=== PATIENT | male | born 1950 | race Caucasian/White ===

== ENCOUNTER 2017-04-07 16:07 | Emergency (ER) | payer MEDICARE, OTHER ==
[2017-04-07 16:59] LABS: CALCIUM 8.9 mg/dL (8.5-10.3); CREATININE 0.7 mg/dL (0.6-1.2); POTASSIUM 4.4 mmol/L (3.5-5.0)
[2017-04-07 17:08] LABS: BASOPHILS # (AUTO) 0.1 10^3/uL (0.0-0.1); BASOPHILS % (AUTO) 1.2 %; EOSINOPHILS # (AUTO) 0.8 10^3/uL (0.0-0.7); EOSINOPHILS % (AUTO) 7.5 %; HCT - HEMATOCRIT 47.7 % (42.0-52.0); HGB - HEMOGLOBIN 15.8 g/dL (14.0-18.0); LYMPHOCYTES # (AUTO) 4.2 10^3/uL (1.5-3.5); MEAN CORPUSCULAR HEMOGLOBIN 30.7 pg (27.0-31.0); MEAN CORPUSCULAR HGB CONC 33.1 g/dL (32.0-36.0); MEAN CORPUSCULAR VOLUME 92.7 fL (80.0-94.0); MEAN PLATELET VOLUME 8.1 fL (7.4-11.4); NEUTROPHILS # (AUTO) 4.1 10^3/uL (1.5-6.6); NEUTROPHILS % (AUTO) 40.3 %; NUCLEATED RED BLOOD CELLS AUTO 0.1 /100WBC; RED BLOOD COUNT 5.15 10^6/uL (4.70-6.10); RED CELL DISTRIBUTION WIDTH 13.3 % (12.0-15.0); UNCORRECTED WHITE BLOOD COUNT 10.3 x10^3/uL; WHITE BLOOD COUNT 10.3 x10^3/uL (4.8-10.8)
[2017-04-07] MEDS ORDERED: FLECAINIDE 50 MG TABLET PO ONE (17:46)
[2017-04-07] MEDS ORDERED: FLECAINIDE 50 MG TABLET PO SCH (18:00)
--- NOTE | 2017-04-07 20:19 | ED Physician Documentation ---
History of Present Illness - Stated complaint Stated Complaint: AFIB STATE - Chief complaint Chief Complaint: Cardiac - History obtained from History obtained from: Patient (Pt states that 2 days ago he noticed that he was in A-fib. 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 pt has no symptoms from the a fib.) Review of Systems Constitutional: denies: Fever, Chills, Myalgias Throat: denies: Sore throat Cardiac: reports: Palpitations. denies: Chest pain / pressure, Calf pain Respiratory: denies: Dyspnea, Cough, Wheezing GI: denies: Abdominal Pain, Nausea, Vomiting, Constipation, Diarrhea : denies: Dysuria, Frequency Skin: denies: Rash, Lesions Musculoskeletal: denies: Back pain Neurologic: denies: Generalized weakness, Headache PD PAST MEDICAL HISTORY - Present Medications Home Medications: Ambulatory Orders Medication Instructions Recorded Confirmed Aspirin Chewable [[place] 81 mg PO DAILY 04/07/17 04/07/17 Aspirin] Sotalol [Betapace] 1 tab PO TID 04/07/17 04/07/17 - Allergies Allergies/Adverse Reactions: Allergies Allergy/AdvReac Type Severity Reaction Status Date / Time Sulfa (Sulfonamide Allergy Unknown Verified 04/07/17 16:25 Antibiotics) PD ED PE NORMAL - Vitals Vital signs reviewed: Yes - General General: Alert and oriented X 3, No acute distress - HEENT HEENT: Atraumatic - Cardiac Cardiac: No murmur, No gallop. No: RRR (irregular ) - Respiratory Respiratory: No respiratory distress, Clear bilaterally - Abdomen Abdomen: Normal bowel sounds, Soft, Non tender - Derm Derm: Normal color, No rash - Neuro Neuro: Alert and oriented X 3 Eye Opening: Spontaneous Motor: Obeys Commands Verbal: Oriented GCS Score: 15 - Psych Psych: Normal mood, Normal affect Results - Vitals Vitals: Vital Signs - 24 hr 04/07/17 04/07/17 16:20 19:11 Temperature 97.6 C H 36.7 C Heart Rate 78 91 Respiratory 16 16 Rate Blood Pressure 123/75 O2 Saturation 96 97 Oxygen O2 Source Room air - EKG (time done) 1624 Rate: Rate (enter#) Rhythm: Atrial fibrillation [place]: Normal QRS: Normal Ischemia: Non specific changes 1921 Rate: Rate (enter#) Rhythm: Atrial fibrillation [place]: Normal Intervals: QRS normal QRS: Normal Ischemia: Non specific changes - Labs Labs: Laboratory Tests 04/07/17 04/07/17 04/07/17 16:35 16:35 16:35 WBC 10.3 RBC 5.15 Hgb 15.8 Hct 47.7 MCV 92.7 MCH 30.7 MCHC 33.1 RDW 13.3 Plt Count 269 MPV 8.1 Neut # 4.1 Lymph # 4.2 H [place] # 1.0 Eos # 0.8 H Baso # 0.1 Absolute Nucleated RBC 0.01 Nucleated RBC % 0.1 Sodium 139 Potassium 4.4 Chloride 103 Carbon Dioxide 30 Anion Gap 6.0 BUN 18 Creatinine 0.7 Estimated GFR (MDRD) 113 Glucose 101 H Calcium 8.9 Troponin I < 0.04 PD MEDICAL DECISION MAKING - ED course Complexity details: d/w patient ED course: pt in afib with a normal rate and normal BP. tried flecainide in the eR but did not convert. Pt has no symptoms of the afib, has normal BP. pt does spend some time in NSR on the monitor in the ER. we discussed his options and decided to send the pt home and will contact his elementary school professional on monday. we discussed his return precautions Departure - Departure Disposition: Home, Self Care Clinical Impression: Atrial fibrillation Condition: Good Instructions: Atrial Fibrillation Dc Follow-Up: elementary school professional, provider [Other] Comments: I cave you Flecainide here in the ER. call your elementary school professional on monday to discuss your options. Return to the ER for any new symptoms, chest pain, shortenss of breath or any other concerning symptoms.
[2017-04-07 20:38] VITALS: BP 131/68
== END 2017-04-07 20:45 | disposition home or self-care (01) ==
LOC: ED 16:07
DX: I48.91 Unspecified atrial fibrillation (principal); I49.3 Ventricular premature depolarization; Z79.82 Long term (current) use of aspirin
CPT/HCPCS: 36415; 80048; 84484; 85025; 93005; 99283; 99284; A9270

== ENCOUNTER 2020-07-11 13:19 | Outpatient (CLI) | payer MEDICARE | END 2020-07-11 13:20 | disposition critical access hospital (66) | LOC: EMS 13:19 | PROVIDERS: ATTEND Emergency Medicine | DX: S42.302A Unspecified fracture of shaft of humerus, left arm, initial encounter for closed fracture (principal); W10.8XXA Fall (on) (from) other stairs and steps, initial encounter; Y93.01 Activity, walking, marching and hiking; Y92.832 Beach as the place of occurrence of the external cause | CPT/HCPCS: A0425; A0427 ==

== ENCOUNTER 2020-07-11 13:56 | Emergency (ER) | payer BC, MEDICARE, OTHER ==
[2020-07-11 14:10] LABS: BASOPHILS # (AUTO) 0.1 10^3/uL (0.0-0.1); BASOPHILS % (AUTO) 0.4 %; EOSINOPHILS % (AUTO) 0.1 %; HCT - HEMATOCRIT 43.9 % (42.0-52.0); HGB - HEMOGLOBIN 14.3 g/dL (14.0-18.0); LYMPHOCYTES # (AUTO) 1.1 10^3/uL (1.5-3.5); LYMPHOCYTES % (AUTO) 7.8 %; MEAN CORPUSCULAR HEMOGLOBIN 30.1 pg (27.0-31.0); MEAN CORPUSCULAR HGB CONC 32.6 g/dL (32.0-36.0); MEAN CORPUSCULAR VOLUME 92.4 fL (80.0-94.0); MEAN PLATELET VOLUME 9.4 fL (7.4-11.4); MONOCYTES # (AUTO) 0.9 10^3/uL (0.0-1.0); MONOCYTES % (AUTO) 6.4 %; NEUTROPHILS # (AUTO) 11.9 10^3/uL (1.5-6.6); NEUTROPHILS % (AUTO) 84.9 %; PLT - PLATELET COUNT 236 10^3/uL (130-450); RED BLOOD COUNT 4.75 10^6/uL (4.70-6.10); RED CELL DISTRIBUTION WIDTH 13.2 % (12.0-15.0); WHITE BLOOD COUNT 14.1 x10^3/uL (4.8-10.8)
--- NOTE | 2020-07-11 14:13 | ED Physician Documentation ---
History of Present Illness - Stated complaint Stated Complaint: FALL - Chief complaint Chief Complaint: Trauma Ext - History obtained from History obtained from: Patient - History of Present Illness Timing: Today Pain level max: 7 Pain level now: 5 - Additonal information Additional information: Patient is a 69-year-old male who presents to the emergency department after falling today. [place] when he slipped and fell approximately 12 steps to the ground. He states that he mostly hit on his buttocks. He may have struck his head, he is unsure but does take Eliquis. His only complaint of pain is to the left shoulder. Worse with movement, better with splinting. No loss of consciousness. No vomiting. No seizure activity. No numbness or tingling. Review of Systems Ten Systems: 10 systems reviewed and negative Constitutional: denies: Fever, Chills Nose: denies: Rhinorrhea / runny nose, Congestion Throat: denies: Sore throat Respiratory: denies: Cough GI: denies: Nausea, Vomiting, Diarrhea Skin: denies: Rash Musculoskeletal: denies: Neck pain, Back pain Neurologic: denies: Focal weakness, Numbness, Seizure, Confused, Headache PD PAST MEDICAL HISTORY - Past Medical History Past Medical History: Yes Cardiovascular: Atrial fibrillation - Past Surgical History Past Surgical History: Yes Cardiovascular: Other (ablation) - Present Medications Home Medications: Ambulatory Orders Medication Instructions Recorded Confirmed Apixaban [Eliquis] 5 mg PO BID 07/11/20 07/11/20 Budesonide [Pulmicort] 1 puffs .ROUTE BID 07/11/20 07/11/20 Oxycodone HCl/Acetaminophen 1 - 2 each PO Q6H PRN #20 tab 07/11/20 [Percocet 5-325 mg Tablet] - Allergies Allergies/Adverse Reactions: Allergies Allergy/AdvReac Type Severity Reaction Status Date / Time Sulfa (Sulfonamide Allergy Unknown Verified 07/11/20 15:05 Antibiotics) - Living Situation Living Arrangement: reports: At home - Social History Does the pt have substance abuse?: No - Family History Family history: reports: Non contributory - Immunizations Immunizations are current?: Yes Immunizations: TDAP current <10years PD ED PE NORMAL - Vitals Vital signs reviewed: Yes - General General: Alert and oriented X 3, No acute distress - HEENT HEENT: Atraumatic, PERRL, Ears normal, Moist mucous membranes, Pharynx benign - Neck Neck: Supple, no meningeal sign, Other (c-collar in place. mild upper c-spine TTP. NVI) - Cardiac Cardiac: RRR - Respiratory Respiratory: No respiratory distress, Clear bilaterally - Abdomen Abdomen: Soft, Non tender, Non distended - Back Back: No spinal TTP - Derm Derm: Warm and dry - Extremities Extremities: No edema, No calf tenderness / cord, Other (Tenderness to palpation over the left glenohumeral joint. No gross deformity. Neurovascular intact. Otherwise normal examination of the 4 extremities. No lacerations or broken skin) - Neuro Neuro: Alert and oriented X 3, furniture sprayer 2-12 intact, No motor deficit, No sensory deficit, Normal speech Eye Opening: Spontaneous Motor: Obeys Commands Verbal: Oriented GCS Score: 15 - Psych Psych: Normal mood, Normal affect Results - Vitals Vitals: Vital Signs - 24 hr 07/11/20 07/11/20 07/11/20 13:59 14:33 14:35 Temperature 36.1 C L Heart Rate 81 78 76 Respiratory 16 16 16 Rate Blood Pressure 145/82 H 124/74 139/64 H O2 Saturation 98 96 97 07/11/20 07/11/20 15:05 15:30 Temperature Heart Rate 79 78 Respiratory 12 14 Rate Blood Pressure 138/71 H 134/69 H O2 Saturation 97 96 Oxygen O2 Source Room air - Labs Labs: Laboratory Tests 07/11/20 07/11/20 14:01 14:05 WBC 14.1 H RBC 4.75 Hgb 14.3 Hct 43.9 MCV 92.4 MCH 30.1 MCHC 32.6 RDW 13.2 Plt Count 236 MPV 9.4 Neut # (Auto) 11.9 H Lymph # (Auto) 1.1 L [place] # (Auto) 0.9 Eos # (Auto) 0.0 Baso # (Auto) 0.1 Absolute Nucleated RBC 0.00 Nucleated RBC % 0.0 Sodium 139 Potassium 4.2 Chloride 100 L Carbon Dioxide 28 Anion Gap 11.0 BUN 20 Creatinine 0.9 Estimated GFR (MDRD) 84 L Glucose 146 H Calcium 9.1 Total Bilirubin 1.7 H AST 19 ALT 22 Alkaline Phosphatase 87 Total Protein 7.2 Albumin 3.9 Globulin 3.3 Albumin/Globulin Ratio 1.2 - Rads (name of study) head CT Radiology: Prelim report reviewed, EMP read contemporaneously, See rad report (N o acute abnormality) cervical spine CT Radiology: Prelim report reviewed, EMP read contemporaneously, See rad report (No acute abnormality) L shoulder xray Radiology: Prelim report reviewed, EMP read contemporaneously, See rad report (Proximal humerus fracture) PD MEDICAL DECISION MAKING - ED course Complexity details: reviewed results, re-evaluated patient, considered differential, d/w patient ED course: 69-year-old male presents to the emergency department after a fall today down several stairs. No acute findings on head CT or cervical spine CT. Left shoulder x-ray has a proximal humerus fracture. Placed in a Harmon brace and sling. Pain well controlled. Neurovascularly intact including the axillary nerve. We will have him follow-up with orthopedics for further care. Discussed the case with Dr. Haque who will see the patient in clinic this week. Patient counseled regarding signs and symptoms for which I believe and urgent re-evaluation would be necessary. Patient with good understanding of and agreement to plan and is comfortable going home at this time This document was made in part using voice recognition software. While efforts are made to proofread this document, sound alike and grammatical errors may occ ur. Departure - Departure Disposition: 01 Home, Self Care Clinical Impression: Proximal humerus fracture Qualifiers: Encounter type: initial encounter Fracture type: closed Fracture morphology: unspecified fracture morphology Laterality: left Qualified Code(s): S42.202A - Unspecified fracture of upper end of left humerus, initial encounter for closed fracture Condition: Good Instructions: ED Fx Upper Ext Follow-Up: JENSEN CONTRERAS MD [Primary Care Provider] - [facility] [Provider Group] Prescriptions: Oxycodone HCl/Acetaminophen [Percocet 5-325 mg Tablet] 1 - 2 each PO Q6H PRN #20 tab PRN Reason: pain Comments: Wear the brace until released by orthopedics. Follow-up with orthopedics next week for further care. Return if you worsen. I spoke with Dr. Haque of orthopedics [facility]. Do not drink alcohol or drive while on narcotic pain medicine. Note that many narcotic pain relievers also contain tylenol/acetaminophen. Please ensure that your total dose of acetaminophen from all sources does not exceed 3 grams (3000mg) per day. You may constipated on this medication, take a stool softener such as "Colace" twice a day while you are on it. Also recommend a [id number] laxative such as senna or MiraLAX any day that you do not have a bowel movement. If you received narcotic pain medication in the emergency department, do not drive or operate machinery for the next 24 hours. Discharge Date/Time: 07/11/20 15:55
[2020-07-11 14:19] LABS: ALBUMIN 3.9 g/dL (3.2-5.5); ALBUMIN/GLOBULIN RATIO 1.2 (1.0-2.2); BILIRUBIN,TOTAL 1.7 mg/dL (0.2-1.0); CALCIUM 9.1 mg/dL (8.5-10.3); CREATININE 0.9 mg/dL (0.6-1.2); POTASSIUM 4.2 mmol/L (3.5-5.0); TOTAL PROTEIN 7.2 g/dL (6.7-8.2)
--- NOTE | 2020-07-11 14:27 | CT Report ---
PROCEDURE: HEAD WO INDICATIONS: fall, head injury, takes eliquis TECHNIQUE: Noncontrast 4.5 mm thick angled axial sections acquired from the foramen magnum to the vertex. For r adiation dose reduction, the following was used: automated exposure control, adjustment of mA and/or kV according to patient size. COMPARISON: None. FINDINGS: Image quality: Excellent. CSF spaces: Basal cisterns are patent. No extra-axial fluid collections. Ventricles are normal in size and shape. Brain: No midline shift. No intracranial masses or hemorrhage. Rosales-white matter interface is norm al. Skull and face: Calvarium and visualized facial bones are intact, without suspicious lesions. Sinuses: Mild bilateral maxillary sinus mucoperiosteal thickening. Moderate bilateral ethmoid sinus mucosal thickening. Visualized sinuses and mastoids are otherwise clear. IMPRESSION: No acute intracranial abnormality. Reviewed by: Babatunde Hand MD on 07/11/2020 1:26 PM [facility] Approved by: Babatunde Hand MD on 07/11/2020 1:26 PM [facility] Station ID: [id number]
--- NOTE | 2020-07-11 14:29 | CT Report ---
PROCEDURE: CERVICAL SPINE WO INDICATIONS: fall, neck pain TECHNIQUE: Noncontrast 3 mm thick sections acquired from the skull base to the T4 level. Sagittal and coronal r eformats were then constructed. For radiation dose reduction, the following was used: automated exp osure control, adjustment of mA and/or kV according to patient size. COMPARISON: None. FINDINGS: Image quality: Excellent. Bones: No fractures or dislocations. Visualized superior ribs are intact. Soft tissues: Prevertebral soft tissues are normal in thickness. No paravertebral hematomas. No ap ical pneumothoraces. Right greater than left biapical scarring. IMPRESSION: No fracture. Reviewed by: Babatunde Hand MD on 07/11/2020 1:27 PM [place] Approved by: Babatunde Hand MD on 07/11/2020 1:27 PM [facility] Station ID: [id number]
--- NOTE | 2020-07-11 14:41 | XRAY Report ---
PROCEDURE: Shoulder 3 View LT INDICATIONS: fall, L shoulder pain TECHNIQUE: 3 views of the shoulder were acquired. COMPARISON: None. FINDINGS: Bones: There is a moderately displaced and angulated comminuted fracture of the left proximal humerus . No suspicious bony lesions. Visualized ribs appear intact. Soft tissues: No suspicious soft tissue calcifications. IMPRESSION: Proximal humeral fracture. Reviewed by: Babatunde Hand MD on 07/11/2020 1:39 PM [facility] Approved by: Babatunde Hand MD on 07/11/2020 1:39 PM [facility] Station ID: [id number]
[2020-07-11] MEDS ORDERED: HYDROmorphone 1 MG/ML CARPUJECT IVP STA (15:02)
[2020-07-11 15:32] VITALS: BP 134/69
== END 2020-07-11 15:55 | disposition home or self-care (01) ==
LOC: EDUNIT# → ED 13:56
DX: S42.202A Unspecified fracture of upper end of left humerus, initial encounter for closed fracture (principal); W10.8XXA Fall (on) (from) other stairs and steps, initial encounter; Y93.01 Activity, walking, marching and hiking; Y92.832 Beach as the place of occurrence of the external cause; I48.91 Unspecified atrial fibrillation; Z79.01 Long term (current) use of anticoagulants
CPT/HCPCS: 36415; 70450; 72125; 73030; 80053; 85025; 96374; 99284; J1170

== ENCOUNTER 2024-01-02 11:23 | Emergency (ER) | payer MEDICARE ==
[2024-01-02 11:51] VITALS: BP 137/92; O2SAT 94
[2024-01-02 12:46] LABS: CORONAVIRUS 229E-RESP PCR NOT DETECTED; CORONAVIRUS HKU1-RESP PCR NOT DETECTED; CORONAVIRUS NL63-RESP PCR NOT DETECTED; CORONAVIRUS OC43-RESP PCR NOT DETECTED; HUMAN METAPNEUMOVIRUS NOT DETECTED; INFLUENZA A- RESP PCR PANEL NOT DETECTED; INFLUENZA B - RESP PCR PANEL NOT DETECTED; PARAINFLUENZA VIRUS 1 NOT DETECTED; PARAINFLUENZA VIRUS 2 NOT DETECTED; PARAINFLUENZA VIRUS 3 NOT DETECTED; RHINOVIRUS/ENTEROVIRUS NOT DETECTED; SARS-CoV-2 -RESP PCR PANEL NOT DETECTED
[2024-01-02 12:47] LABS: B. PARAPERTUSSIS- RESP PCR PAN NOT DETECTED; B. PERTUSSIS- RESP PCR PANEL NOT DETECTED; C. PNEUMONIAE- RESP PCR PANEL NOT DETECTED; M. PNEUMONIAE- RESP PCR PANEL NOT DETECTED; PARAINFLUENZA VIRUS 4 NOT DETECTED; RSV- RESP PCR PANEL NOT DETECTED
--- NOTE | 2024-01-02 13:18 | ED Physician Documentation ---
PD HPI URI - Stated complaint Stated Complaint: SOA - Chief complaint Chief Complaint: Resp - History obtained from History obtained from: Patient - History of Present Illness Timing - onset: How many days ago (several days) Timing duration: Days Timing details: Abrupt onset, Still present Associated symptoms: Chills, Nasal congestion, Productive cough, Dyspnea. 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 denies: Fever Nose: denies: Congestion Throat: denies: Sore throat Cardiac: denies: Chest pain / pressure Respiratory: reports: Dyspnea, Cough, Wheezing GI: denies: Vomiting, Diarrhea PD PAST MEDICAL HISTORY - Past Medical History Past Medical History: Yes Cardiovascular: Atrial fibrillation Respiratory: Asthma Endocrine/Autoimmune: None GI: Other : None HEENT: Glaucoma, Chronic sinusitis Psych: None Musculoskeletal: None Derm: None - Past Surgical History Past Surgical History: Yes Cardiovascular: Other HEENT: Other - Present Medications Home Medications: Ambulatory Orders Medication Instructions Recorded Confirmed Apixaban [Eliquis] 5 mg PO BID 07/11/20 07/11/20 Budesonide [Pulmicort] 1 puffs .ROUTE BID 07/11/20 07/11/20 Oxycodone HCl/Acetaminophen 1 - 2 each PO Q6H PRN #20 tab 07/11/20 [Percocet 5-325 mg Tablet] Albuterol 2.5 mg INH Q4H PRN #30 ml 01/02/24 Albuterol Sulf [Ventolin Hfa 1 - 2 puffs INH Q4HR PRN #1 each 01/02/24 Inhaler] Amox/Clav 875/125 [Augmentin] 1 each PO BID #10 tablet 01/02/24 dexAMETHasone [Decadron] 4 mg PO DAILY #7 tablet 01/02/24 - Allergies Allergies/Adverse Reactions: Allergies Allergy/AdvReac Type Severity Reaction Status Date / Time Sulfa (Sulfonamide Allergy Unknown Verified 01/02/24 11:38 Antibiotics) - Social History Does the pt smoke?: No Smoking Status: Never smoker Does the pt drink ETOH?: No Does the pt have substance abuse?: No - Immunizations Immunizations are current?: Yes Immunizations: TDAP current <10years - POLST Patient has POLST: No PD ED PE NORMAL - Vitals Vital signs reviewed: Yes - General General: Alert and oriented X 3, Well developed/nourished - HEENT HEENT: Pharynx benign - Neck Neck: Supple, no meningeal sign, No adenopathy - Cardiac Cardiac: RRR, No murmur - Respiratory Respiratory: No respiratory distress. No: Clear bilaterally (no coarse sounds. diffuse tight wheezing. ) - Abdomen Abdomen: Soft, Non tender - Derm Derm: Normal color, Warm and dry - Extremities Extremities: Normal ROM s pain, No edema, No calf tenderness / cord Results - Vitals Vitals: Vital Signs - 24 hr 01/02/24 01/02/24 11:38 14:21 Temperature 36.7 C Heart Rate 91 64 Respiratory 18 20 Rate Blood Pressure 137/92 H O2 Saturation 94 Oxygen O2 Source Room air - Labs Labs: Laboratory Tests 01/02/24 11:45 Nasal Adenovirus (PCR) NOT DETECTED Nasal B. parapertussis DNA (PCR) NOT DETECTED Nasal Coronavir 229E PCR NOT DETECTED Nasal Coronavir HKU1 PCR NOT DETECTED Nasal Coronavir NL63 PCR NOT DETECTED Nasal Coronavir OC43 PCR NOT DETECTED Nasal Enterovir/Rhinovir PCR NOT DETECTED Nasal Influenza B PCR NOT DETECTED Nasal Influenza A PCR NOT DETECTED Nasal Parainfluen 1 PCR NOT DETECTED Nasal Parainfluen 2 PCR NOT DETECTED Nasal Parainfluen 3 PCR NOT DETECTED Nasal Parainfluen 4 PCR NOT DETECTED Nasal RSV (PCR) NOT DETECTED Nasal B.pertussis DNA PCR NOT DETECTED Nasal C.pneumoniae (PCR) NOT DETECTED Colten Human Metapneumo PCR NOT DETECTED Nasal M.pneumoniae (PCR) NOT DETECTED Nasal SARS-CoV-2 (PCR) NOT DETECTED - Rads (name of study) chest xray Relevant Findings:: Prelim report reviewed (No infiltrates; question perihilar mass, suggestes follow up CT. ), EMP independent interpretation of test (hyperexpanded, old granulomas. ) PD Medical Decision Making - ED course Complexity details: reviewed results (has old granulomas and concern for lung mass. Pt sees a [employer] (recently started with him) and states he has been told about "calcified islands". I would presume his protector plate attacher has taken xrays. Pt gien copy of his xray report to pass on to speciaslist.), re-evaluated patient (improved breathing and wheeze with neb treatment here. Resp viral panel is negative, which increases concern for bacterial. ), considered differential (acute cough and wheezing with sputum production. Concern for viral vs bacterial and given history of lung dz, would opt for steroids and abx, along with regular use of his Albuterol that he use infrequently usually. ), d/w patient Departure - Departure Disposition: 01 Home, Self Care Clinical Impression: Granulomatous lung disease, Chest x-ray abnormality Dyspnea Qualifiers: Dyspnea type: shortness of breath Qualified Code(s): R06.02 - Shortness of breath; R06.00 - Dyspnea, unspecified; R06.01 - Orthopnea Exacerbation of asthma Qualifiers: Asthma severity: unspecified severity Asthma persistence: intermittent Qualified Code(s): J45.21 - Mild intermittent asthma with (acute) exacerbation Cough Qualifiers: Cough type: acute Qualified Code(s): R05.1 - Acute cough Condition: Stable Record reviewed to determine appropriate education?: Yes Prescriptions: Albuterol Sulf [Ventolin Hfa Inhaler] 1 - 2 puffs INH Q4HR PRN #1 each PRN Reason: Shortness Of Air/Wheezing Albuterol 2.5 mg INH Q4H PRN #30 ml PRN Reason: Wheezing Amox/Clav 875/125 [Augmentin] 1 each PO BID #10 tablet dexAMETHasone [Decadron] 4 mg PO DAILY #7 tablet Comments: Continue with your budesonide inhaler. Will add oral steroid as well to have a more general effect on decreasing inflammation through the bronchioles. Dexamethasone daily for 7 more days. Your chest x-ray does not show any acute pneumonia. There is prior calcified areas within the lung suggesting old prior granulomatous infection. This would not impact on your current symptoms per se but may have impact on subsequent ongoing lung treatments to your protector plate attacher. Your respiratory viral panel is negative for the major viruses. As such would be concerned that your flareup may relate to a bacterial infection and typically would cover with an antibiotic as well. You can use your nebulizer or inhaler and go fairly regularly 4 times a day for the next week and extra times if needed. I sent your prescriptions to preferred pharmacy. Summary the points: 1. Use nebulizer or inhaler 4 times daily plus extra if needed for the next week 2. Augmentin antibiotic twice daily for 5 days 3. Dexamethasone oral steroid daily for another week 4. Continue with your budesonide 5. Recheck if not improving well over the next few days and return if worse. Forms: PCP List Discharge Date/Time: 01/02/24 14:45
--- NOTE | 2024-01-02 13:24 | XRAY Report ---
PROCEDURE: Chest 2V INDICATIONS: cough/SOA TECHNIQUE: 2 views of the chest were acquired. COMPARISON: None. FINDINGS: Surgical changes and devices: None. Lungs and pleura: No pleural effusions or pneumothorax. Lungs are clear. Suggestion of a medial rig ht lung nodular density overlying the mid to lower thoracic vertebral body. Additionally, there is a right middle lobe calcified granuloma.. Mediastinum: Mediastinal contours appear normal. Large calcified right paratracheal lymph node consi stent with chronic granulomatous disease. Heart size is normal. Bones and chest wall: No suspicious bony lesions. Overlying soft tissues appear unremarkable. IMPRESSION: 1. No acute infiltrates. 2. Chronic granulomatous disease. 3. Question right lung mass. Recommend nonemergent CT chest. Reviewed by: Diego Souza MD on 01/02/2024 1:22 PM PDT Approved by: Diego Souza MD on 01/02/2024 1:22 PM PDT Station ID: [id number]
[2024-01-02] MEDS: dexAMETHasone 4 MG TABLET PO STA (14:17)
[2024-01-02] MEDS: AMOX/CLAV 875 MG/125 MG TABLET PO STA (14:17)
[2024-01-02] MEDS: IPRATROPIUM/ALBUTEROL 3 ML NEB INH STA (14:18)
== END 2024-01-02 14:45 | disposition home or self-care (01) ==
LOC: ED 11:23
DX: J84.10 Pulmonary fibrosis, unspecified (principal); J44.9 Chronic obstructive pulmonary disease, unspecified; J45.21 Mild intermittent asthma with (acute) exacerbation; Z20.818 Contact with and (suspected) exposure to other bacterial communicable diseases; Z20.822 Contact with and (suspected) exposure to COVID-19; Z20.828 Contact with and (suspected) exposure to other viral communicable diseases
CPT/HCPCS: 71046; 87633; 94640; 94664; 99283; 99284; A9270; J8540

== ENCOUNTER 2024-04-27 07:23 | Observation (INO) ==
[2024-04-27] MEDS ORDERED: IPRATROPIUM/ALBUTEROL 3 ML NEB INH STA (07:31)
--- NOTE | 2024-04-27 07:32 | ED Physician Documentation ---
PD HPI DYSPNEA Stated complaint Stated Complaint: SOA Chief complaint Chief Complaint: Resp Additional information Additional information: 73-year-old male with history of asthma/COPD presents by EMS from home for shortness of breath consistent with asthma exacerbation. Woke up around 6:30 AM with shortness of breath. He tried to take some breathing treatments but he felt like this worsened his symptoms and called 911. When EMS arrived the patient was significantly short of breath, nonverbal due to dyspnea. Room O2 saturations 77%. He had restricted air movement in all lung ritter. He was given 2 mg magnesium, 125 mg Solu-Medrol, and DuoNeb treatment Patient arrived on nonrebreather with nebulizer treatment in process. Continuing to complain of shortness of breath stating that he did feel slightly better. Review of Systems Status of ROS: unobtainable due to medical condition Cardiovascular Reports: shortness of breath with exertion Respiratory Reports: Shortness of breath Meds/Allgy Home Medications Ambulatory Orders Medication Instructions Recorded Confirmed apixaban 5 mg tablet (Eliquis) 5 mg PO BID 07/11/20 04/27/24 budesonide 180 mcg/actuation 1 puff inhalation BID 07/11/20 04/27/24 breath activated powder inhaler (Pulmicort Flexhaler) albuterol sulfate 2.5 mg/3 mL 2.5 mg (3 mL) inhalation Q4H PRN 01/02/24 04/27/24 (0.083 %) solution for nebulization Wheezing #30 mL albuterol sulfate 90 mcg/actuation 1 - 2 puff inhalation Q4HR PRN 01/02/24 04/27/24 aerosol inhaler (Ventolin HFA) Shortness Of Air/Wheezing #1 ea budesonide-formoterol HFA 160 2 puff inhalation BID 04/27/24 04/27/24 mcg-4.5 mcg/actuation aerosol inhaler dorzolamide 22.3 mg-timolol 6.8 1 drp ophthalmic (eye) BID 04/27/24 04/27/24 mg/mL eye drops latanoprostene bunod 0.024 % eye 1 drp ophthalmic (eye) QPM 04/27/24 04/27/24 drops (Vyzulta) montelukast 10 mg tablet 10 mg PO QPM 04/27/24 04/27/24 Allergies Allergies Allergy/AdvReac Type Severity Reaction Status Date / Time Sulfa (Sulfonamide Allergy Unknown Verified 04/27/24 07:28 Antibiotics) [facility] Medical History Medical History (Updated 04/27/24 @ 15:21 by Katja Mclain MD) COPD with asthma Diverticulosis large intestine w/o perforation or abscess w/bleeding seen on colonoscopy with symptoms. Does fiber daily Closed fracture of left proximal humer[place] 07[place]20 Chronic sinusitis Glaucoma with surgery A-fib s/p ablation Asthma Surgical History Surgical History (Updated 04/27/24 @ 13:40 by Vy Burns MD) H/O right inguinal hernia repair with mesh Family History Family History (Updated 04/27/24 @ 13:45 by Vy Burns MD) Mother Cancer Smoker Alcoholism Father Colon cancer Alcohol abuse Smoker Brother Well adult on routine health check Brother Airplane as place of occurrence of external cause Son Well adult on routine health check Son Well adult on routine health check Social History Social History (Updated 04/27/24 @ 13:47 by Vy Burns MD) Smoking Status: Never smoker Second hand tobacco smoke exposure: No Do you dip or chew tobacco?: No Do you vape?: No Patient requests smoking cessation consult: No Living arrangement: At home Marital Status: Living Condition: With spouse/s.o. 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 Speaking 1-2 words maximum at a time. HENMT normocephalic Chest inspection of chest normal and palpation of chest normal Respiratory marked increased respiratory effort, tachypnea, diffuse wheezing all lung ritter. Cardiovascular regular rhythm noted Results Vitals Vitals: Vital Signs - 24 hr 04/27/24 07:28 04/27/24 07:44 04/27/24 07:45 Temperature 36.1 C L Temperature Source Temporal Artery Scan Pulse Rate 101 H 97 H Respiratory Rate 42 H 32 H Blood Pressure 204/129 H O2 Saturation 99 Oxygen Delivery Method Mask O2 Source nebulizer 15L If not protocol: Oxygen Flow, liters/minute 7 10 Pain Intensity 0 04/27/24 08:01 04/27/24 08:12 04/27/24 08:24 Temperature Temperature Source Pulse Rate 100 H 100 H 101 H Respiratory Rate 30 H 28 H 28 H Blood Pressure 204/129 H 127/75 O2 Saturation 98 99 Oxygen Delivery Method O2 Source cont neb 10L svn mini heart cont neb tx If not protocol: Oxygen Flow, liters/minute Pain Intensity 0 0 04/27/24 08:54 04/27/24 10:27 04/27/24 11:00 Temperature 36.3 C L 36.4 C L Temperature Source Temporal Artery Scan Temporal Artery Scan Oral Pulse Rate 101 H 94 H 93 H Respiratory Rate 26 H 14 Blood Pressure 151/78 H 122/69 137/62 H O2 Saturation 100 96 91 L Oxygen Delivery Method O2 Source cont. neb Room air Room air If not protocol: Oxygen Flow, liters/minute Pain Intensity 0 0 0 Oxygen O2 Source Room air Labs Labs: Laboratory Tests 04/27/24 04/27/24 07:45 07:50 WBC 11.5 H RBC 5.24 Hgb 15.6 Hct 49.6 MCV 94.7 H MCH 29.8 MCHC 31.5 L RDW 13.1 Plt Count 309 MPV 9.6 Neut # (Auto) 6.1 Lymph # (Auto) 3.6 H Nelson # (Auto) 0.7 Eos # (Auto) 0.9 H Baso # (Auto) 0.1 Absolute Nucleated RBC 0.00 Nucleated RBC % 0.0 PT 12.8 H INR 1.2 Sodium 140 Potassium 3.4 L Chloride 102 Carbon Dioxide 33 H Anion Gap 5.0 L BUN 13 Creatinine 0.8 Estimated GFR (MDRD) 95 Glucose 206 H Calcium 9.1 Total Bilirubin 1.7 H AST 15 ALT 13 Alkaline Phosphatase 93 Total Protein 7.5 Albumin 4.3 Globulin 3.2 Albumin/Globulin Ratio 1.3 Nasal Adenovirus (PCR) NOT DETECTED Nasal B. parapertussis DNA (PCR) NOT DETECTED Nasal Coronavir 229E PCR NOT DETECTED Nasal Coronavir HKU1 PCR NOT DETECTED Nasal Coronavir NL63 PCR NOT DETECTED Nasal Coronavir OC43 PCR NOT DETECTED Nasal Enterovir/Rhinovir PCR NOT DETECTED Nasal Influenza B PCR NOT DETECTED Nasal Influenza A PCR NOT DETECTED Nasal Parainfluen 1 PCR NOT DETECTED Nasal Parainfluen 2 PCR NOT DETECTED Nasal Parainfluen 3 PCR NOT DETECTED Nasal Parainfluen 4 PCR NOT DETECTED Nasal RSV (PCR) NOT DETECTED Nasal B.pertussis DNA PCR NOT DETECTED Nasal C.pneumoniae (PCR) NOT DETECTED [place] Human Metapneumo PCR NOT DETECTED Nasal M.pneumoniae (PCR) NOT DETECTED Nasal SARS-CoV-2 (PCR) NOT DETECTED PD Medical Decision Making ED course Complexity details: reviewed old records, reviewed results, re-evaluated patient, considered differential, d/w patient and d/w family ED course: Ill-appearing patient with shortness of breath consistent with obstructive lung exacerbation. He did report feeling somewhat better after the treatments admi nistered by EMS, but was still exhibiting increased work of breathing with restricted breath sounds, wheezing. Respiratory therapy at bedside on patient's arrival and continuous nebulizers initiated. Ketamine infusion ordered as well for bronchodilatory effects. Patient has received multiple nebulizers, he now appears somewhat fatigued, but is able to speak in complete sentences and states that he feels much better, however he still has wheezing and tight lung sounds. Son is now at bedside and states that his father does appear to be much better than when the medics were called earlier this morning. Laboratory work is reviewed, no significant abnormalities identified. Chest x-ray negative for acute findings. Given patient's initial presentation and the fact that he is still wheezing despite multiple treatments plan to admit patient for further treatment. Critical Care Time(min): 36 Comments: Acute hypoxemic respiratory failure and asthma exacerbation requiring multiple nebulizers and admission Time Includes: Direct patient care, Review records, Reassess patient, Document care, Coordinate care, Medical consult and Family consult for tx dec Discharge Plan Discharge Patient Disposition: 66 [facility] DC/Xfer Condition: Stable Clinical Impression: Asthma exacerbation, Acute hypoxemic respiratory failure Interventions: ED Admission Assessment Last Done: 04/27/24 12:54
[2024-04-27] MEDS: IPRATROPIUM/ALBUTEROL 3 ML NEB INH STA (07:42)
[2024-04-27] MEDS: LORazepam 2 MG/ML VIAL IVP STA (07:43)
[2024-04-27] MEDS: MAGNESIUM SULFATE 1 GM/2 ML VIAL IVP STA (07:51)
[2024-04-27] MEDS: MAGNESIUM SULFATE 2 GRAM 2 GM/50 ML BAG IV ONE (07:54)
[2024-04-27 07:59] LABS: BASOPHILS # (AUTO) 0.1 10^3/uL (0.0-0.1); BASOPHILS % (AUTO) 1.1 %; EOSINOPHILS # (AUTO) 0.9 10^3/uL (0.0-0.7); EOSINOPHILS % (AUTO) 8.2 %; HCT - HEMATOCRIT 49.6 % (42.0-52.0); HGB - HEMOGLOBIN 15.6 g/dL (14.0-18.0); LYMPHOCYTES # (AUTO) 3.6 10^3/uL (1.5-3.5); LYMPHOCYTES % (AUTO) 31.1 %; MEAN CORPUSCULAR HEMOGLOBIN 29.8 pg (27.0-31.0); MEAN CORPUSCULAR HGB CONC 31.5 g/dL (32.0-36.0); MEAN CORPUSCULAR VOLUME 94.7 fL (80.0-94.0); MEAN PLATELET VOLUME 9.6 fL (7.4-11.4); MONOCYTES # (AUTO) 0.7 10^3/uL (0.0-1.0); NEUTROPHILS # (AUTO) 6.1 10^3/uL (1.5-6.6); NEUTROPHILS % (AUTO) 53.2 %; PLT - PLATELET COUNT 309 10^3/uL (130-450); RED BLOOD COUNT 5.24 10^6/uL (4.70-6.10); RED CELL DISTRIBUTION WIDTH 13.1 % (12.0-15.0); WHITE BLOOD COUNT 11.5 x10^3/uL (4.8-10.8)
--- NOTE | 2024-04-27 08:05 | XRAY Report ---
PROCEDURE: XR Chest 1V INDICATIONS: severe asthma exacerbation TECHNIQUE: One view of the chest was acquired. COMPARISON: 02/18/2024. FINDINGS: Surgical changes and devices: None. Lungs and pleura: Mild hyperaeration. No pleural effusions or pneumothorax. No consolidation. Mediastinum: Mediastinal contours appear normal. Heart size is normal. Bones and chest wall: No suspicious bony lesions. Overlying soft tissues appear unremarkable. IMPRESSION: Chest without acute cardiopulmonary abnormalities or focal airspace disease. Reviewed by: Salvatore Sandoval MD on 04/27/2024 8:03 AM PST Approved by: Salvatore Sandoval MD on 04/27/2024 8:03 AM PST Station ID: [id number]
[2024-04-27] MEDS: CONCENTRATED ALBUTEROL NEB 2.5 MG/0.5 ML INH STA (08:07)
[2024-04-27 08:08] LABS: INR 1.2 (0.8-1.2); PT - PROTHROMBIN TIME 12.8 secs (9.9-12.6)
[2024-04-27 08:37] LABS: ALBUMIN 4.3 g/dL (3.2-5.5); ALBUMIN/GLOBULIN RATIO 1.3 (1.0-2.2); BILIRUBIN,TOTAL 1.7 mg/dL (0.2-1.0); CALCIUM 9.1 mg/dL (8.5-10.3); CREATININE 0.8 mg/dL (0.6-1.3); POTASSIUM 3.4 mmol/L (3.5-4.5); TOTAL PROTEIN 7.5 g/dL (6.4-8.9)
[2024-04-27] MEDS: SODIUM CHLORIDE 0.9% IV STA (08:49)
[2024-04-27] MEDS: KETAMINE IV STA (08:49)
[2024-04-27 10:04] LABS: B. PARAPERTUSSIS- RESP PCR PAN NOT DETECTED; B. PERTUSSIS- RESP PCR PANEL NOT DETECTED; C. PNEUMONIAE- RESP PCR PANEL NOT DETECTED; CORONAVIRUS 229E-RESP PCR NOT DETECTED; CORONAVIRUS HKU1-RESP PCR NOT DETECTED; CORONAVIRUS NL63-RESP PCR NOT DETECTED; CORONAVIRUS OC43-RESP PCR NOT DETECTED; HUMAN METAPNEUMOVIRUS NOT DETECTED; INFLUENZA A- RESP PCR PANEL NOT DETECTED; INFLUENZA B - RESP PCR PANEL NOT DETECTED; M. PNEUMONIAE- RESP PCR PANEL NOT DETECTED; PARAINFLUENZA VIRUS 1 NOT DETECTED; PARAINFLUENZA VIRUS 2 NOT DETECTED; PARAINFLUENZA VIRUS 3 NOT DETECTED; PARAINFLUENZA VIRUS 4 NOT DETECTED; RHINOVIRUS/ENTEROVIRUS NOT DETECTED; RSV- RESP PCR PANEL NOT DETECTED; SARS-CoV-2 -RESP PCR PANEL NOT DETECTED
--- NOTE | 2024-04-27 11:20 | HISTORY & PHYSICAL EXAMINATION ---
Chief Complaint Chief Complaint Chief Complaint: sob History of Present Illness Admitted From Admitted From:: home via ems History Obtained From Records Reviewed: Expanse History obtained from: patient and Dr. Mclain Exam Limitations: none History of Present Illness HPI Comment/Other: 73-year-old male who has COPD with asthma and is on albuterol via inhalation, Ventolin handheld inhaler, and Breo Ellipta. He was seen in our emergency room in December and February of this for a flare but is usually not seen on a regular basis for COPD. He has lived on the [place] for about 8.5 years. He is not on home O2. He has had asthma off-and-on for years. But is associated with a chronic rhinosinusitis. He has had his sinuses reamed out twice. And he is on a sinus wash with budesonide. In spite of that he continues to have problems with the sinuses. There is nothing new going on with him but is just a chronic problem. His last CT of the sinuses was 2 years ago. To his knowledge, he does not have polyposis. He does not take nonsteroidals. He did not have any aspirin or ibuprofen in the last 2 days. Last pulmonary function studies were years ago. He is due to have a repeat evaluation May 01. 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 He does not recall ever using cedar. He lives in his own home. He does not have an aviary. He is not involved with farm animals. He doesn't smoke. He sees administrative support assoc Joshua Carrizales at [facility] ([phone]). He also sees Kimberlee Boles MD at [facility]/[place] as his PCP ([phone]). His [place] is Jeff Liang MD at [facility] ([phone]). He was brought in by ambulance today for increasing shortness of breath starting at 6:30 in the morning. When he gets short of breath, first thing in the morning, he does a Breo inhalation. He gets up. Drinks his coffee. Watches the sunrise. And he will feel comfortable. With this episode, he felt worse. He used his Ventolin and that also made him much worse. He is noticing that the Ventolin seems to be making him worse, not better. EMS found his initial room air saturation was 77% at his house and he had tremendous increased work of breathing. He tried using his albuterol MDI and nebulizer solution at home and he felt worse. EMS gave him 125 mg of Solu-Medrol and 2 g of magnesium sulfate. And brought him to the emergency room. He has no antecedent history of a viral illness. No fever, chills, cough. No congestion. No recent exposure to anything that would have been toxic to his lungs. He is compliant with his medications. In our emergency room temperature was 36.1, heart rate 101, respirations 42, 97% saturated on room air. Blood pressure was 204/129. He was in severe respiratory distress, and the emergency room provider describes him as almost an extremis. She came from a tiny dose of ketamine, 1 mg of Ativan, and has put him on continuous nebulizer treatments. He has improved. He is now breathing 14 breaths a minute. Still afebrile. Heart rate has come down to 94. And blood pressure is now 122/69. But he still has tight lungs, is wheezing. After discussion with the ER provider, I think it would be prudent to place him in observation status and continue our treatment to stabilize him and try and tease out why he decompensated without any provocative factors. Meds/Allgy Home Medications Ambulatory Orders Medication Instructions Recorded Confirmed apixaban 5 mg tablet (Eliquis) 5 mg PO BID 07/11/20 04/27/24 budesonide 180 mcg/actuation 1 puff inhalation BID 07/11/20 04/27/24 breath activated powder inhaler (Pulmicort Flexhaler) albuterol sulfate 2.5 mg/3 mL 2.5 mg (3 mL) inhalation Q4H PRN 01/02/24 04/27/24 (0.083 %) solution for nebulization Wheezing #30 mL albuterol sulfate 90 mcg/actuation 1 - 2 puff inhalation Q4HR PRN 01/02/24 04/27/24 aerosol inhaler (Ventolin HFA) Shortness Of Air/Wheezing #1 ea budesonide-formoterol HFA 160 2 puff inhalation BID 04/27/24 04/27/24 mcg-4.5 mcg/actuation aerosol inhaler dorzolamide 22.3 mg-timolol 6.8 1 drp ophthalmic (eye) BID 04/27/24 04/27/24 mg/mL eye drops latanoprostene bunod 0.024 % eye 1 drp ophthalmic (eye) QPM 04/27/24 04/27/24 drops (Vyzulta) montelukast 10 mg tablet 10 mg PO QPM 04/27/24 04/27/24 Allergies Allergies Allergy/AdvReac Type Severity Reaction Status Date / Time Sulfa (Sulfonamide Allergy Unknown Verified 04/27/24 07:28 Antibiotics) [facility] Medical History Medical History (Updated 04/27/24 @ 14:30 by Vy Burns MD) COPD with asthma Diverticulosis large intestine w/o perforation or abscess w/bleeding seen on colonoscopy with symptoms. Does fiber daily Closed fracture of left proximal humer[place] 07[place]20 Chronic sinusitis Glaucoma with surgery A-fib s/p ablation Asthma Surgical History Surgical History (Updated 04/27/24 @ 13:40 by Vy Burns MD) H/O right inguinal hernia repair with mesh Family History Family History (Updated 04/27/24 @ 13:45 by Vy Burns MD) Mother Cancer Smoker Alcoholism Father Colon cancer Alcohol abuse Smoker Brother Well adult on routine health check Brother Airplane as place of occurrence of external cause Son Well adult on routine health check Son Well adult on routine health check Social History Social History (Updated 04/27/24 @ 13:47 by Vy Burns MD) Smoking Status: Never smoker Second hand tobacco smoke exposure: No Do you dip or chew tobacco?: No Do you vape?: No Patient requests smoking cessation consult: No Living arrangement: At home Marital Status: Living Condition: With spouse/s.o. 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 Retired: No Service: No Are you following a diet prescribed by a doctor: No Are you following a special diet: No POLST Patient has POLST: Yes POLST Status: DNR Review of Systems Status of ROS: 10 or more systems reviewed and unremarkable except as noted in history and below Eyes Reports: Blurry vision and Other (uses eye drops for glaucoma and they can ?cause asthma) Ears, nose, mouth, and throat Reports: Hearing loss, Nasal congestion, Nasal obstruction and Other (sinus fullness and ache) Cardiovascular Reports: shortness of breath with exertion and other (s/p ablation for afib and is in sinus) Respiratory Reports: Shortness of breath, Cough and Wheezing; Denies: Sputum production, Change in phlegm color, Apnea, Snoring, Stridor, Pleuritic pain, Pain on inspiration, Coughing up blood, Orthopnea, SOB at rest, SOB with exertion or Chest congestion Gastrointestinal Reports: other (stays regular with fiber) Genitourinary Reports: Urinary urgency, Difficulty starting urination and Urinary hesitancy Neurological Reports: Other (son confirms dad has no memory loss. 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 Pays bills. Ambulates without assistance. Regards himself is completely independent. Exam Exam Wean, lanky male who looks stated age and slightly gaunt. 6 foot 7 inches tall, 83.91 kg Constitutional no apparent distress HENMT normocephalic, head/scalp atraumatic, external nose normal and oral mucous membranes normal Low hoarse voice. He said that is new for him and is associated with this current exacerbation. He has to sometimes pause because his voice will break indicating that I think he has got some vocal cord issues or tracheobronchitis. I am Not hearing stridor. Eyes PERRL, conjunctivae normal and no scleral icterus Eyeballs appear slightly sunken in orbit. Slight lid lag Neck/C-Spine supple Lymph no lymphadenopathy noted Chest Pectus excavatum Respiratory breath sounds equal bilaterally, normal respiratory effort, clear to auscultation bilaterally, no wheezes, no rales and no retractions His severe respiratory distress from the emergency room has now seem to resolved. Cardiovascular regular rhythm noted (Slightly tachycardic in the 90s.), no murmur, no JVD and no clicks PMI hard and thumping. He also seems to have a right ventricular lift Gastrointestinal abdomen normal to inspection, abdomen soft to palpation, nontender to palpation, nontender to percussion and nondistended Genitourinary no CVA tenderness Back/Pelvis Protuberant T-spine processes Extremities normal to inspection, normal to palpation, no tenderness, full ROM and no joint enlargement No cyanosis or edema Neurology return agent airport II-XII intact, no movement abnormality noted, no focal motor deficit noted and no sensory deficits noted Psychiatry mental status grossly normal, oriented x3, thought process normal, cooperative and affect normal Skin skin color normal Large SKs on the back, several of them almost near black Conclusion/Plan Problem List (1) Asthma exacerbation: Plan: He describes a relatively sudden in onset exacerbation at 630 this morning. Made worse by his albuterol and not responding to the Breo. He has received IV steroids, continuous albuterol, and he is much improved on physical exam now that he is on MedSurg. He is comfortable. No use of accessory muscles. Speaking in normal tone of voice. He does not he mentions that his sinuses are linked to his asthma. But he denies nasal polyposis. And he denies that nonsteroidal therapy will make this worse. He does not have a history of smoking as far as he knows he does not have emphysema. There is no history of allergen. 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 Plan: observation status I will give him 3 doses of IV steroids. Decrease continuous albuterol to as needed albuterol. Give inhaled Pulmicort I have called his administrative support assoc, and left a message for him to please call me back. I will update them on the patient's status and to see if he wants me to do anything before he leaves such as a CT of the sinuses. You were evaluated in a few more hours to see if he still stable. If he is I anticipate discharge later today (2) COPD with asthma: Plan: When he leaves I will resume his usual home medications. And I will make any changes as indicated by his administrative support assoc. (3) Do not resuscitate: Plan: He states that he has a living will/advanced directive at home. He is a DO NOT RESUSCITATE. His DPOA is his but his son is in the room here and his son can speak for him as well if he needs to. Lab Results 04/27/24 07:50 04/27/24 07:50
[2024-04-27] MEDS ORDERED: oxyCODONE 5 MG TABLET PO PRN (12:53)
[2024-04-27] MEDS ORDERED: ACETAMINOPHEN 325 MG TABLET PO PRN (12:53)
[2024-04-27] MEDS ORDERED: ONDANSETRON ODT 4 MG TABLET TL PRN (12:53)
[2024-04-27] MEDS ORDERED: ONDANSETRON 4 MG/2 ML VIAL IVP PRN (12:53)
[2024-04-27] MEDS ORDERED: ALBUTEROL NEB 2.5 MG/3 ML INH PRN (12:53)
[2024-04-27] MEDS: IPRATROPIUM/ALBUTEROL 3 ML NEB INH SCH (13:30)
[2024-04-27] MEDS: methylPREDNISolone SUCCINATE 40 MG/ML VIAL IVP SCH (14:06)
[2024-04-27] MEDS: SODIUM CHLORIDE FLUSH 0.9% 10 ML SYRINGE IVP SCH (16:25)
[2024-04-27] MEDS: BUDESONIDE 0.5 MG/2 ML NEB INH SCH (19:09)
[2024-04-27 21:21] VITALS: O2SAT 98
[2024-04-27] MEDS: SODIUM CHLORIDE FLUSH 0.9% 10 ML SYRINGE IVP PRN (21:44)
[2024-04-27] MEDS: APIXABAN 5 MG TABLET PO SCH (21:44)
[2024-04-28 05:11] LABS: BASOPHILS % (AUTO) 0.1 %; HCT - HEMATOCRIT 42.2 % (42.0-52.0); HGB - HEMOGLOBIN 13.9 g/dL (14.0-18.0); LYMPHOCYTES # (AUTO) 1.4 10^3/uL (1.5-3.5); LYMPHOCYTES % (AUTO) 11.4 %; MEAN CORPUSCULAR HEMOGLOBIN 29.8 pg (27.0-31.0); MEAN CORPUSCULAR HGB CONC 32.9 g/dL (32.0-36.0); MEAN CORPUSCULAR VOLUME 90.6 fL (80.0-94.0); MEAN PLATELET VOLUME 9.5 fL (7.4-11.4); MONOCYTES # (AUTO) 0.6 10^3/uL (0.0-1.0); MONOCYTES % (AUTO) 4.8 %; NEUTROPHILS # (AUTO) 10.5 10^3/uL (1.5-6.6); NEUTROPHILS % (AUTO) 83.4 %; PLT - PLATELET COUNT 265 10^3/uL (130-450); RED BLOOD COUNT 4.66 10^6/uL (4.70-6.10); RED CELL DISTRIBUTION WIDTH 13.2 % (12.0-15.0); WHITE BLOOD COUNT 12.6 x10^3/uL (4.8-10.8)
[2024-04-28 05:32] LABS: CALCIUM 9.3 mg/dL (8.5-10.3); CREATININE 0.8 mg/dL (0.6-1.3); POTASSIUM 4.6 mmol/L (3.5-4.5)
[2024-04-28 08:46] VITALS: BP 156/76; TEMP 97.9
--- NOTE | 2024-04-28 09:10 | Discharge Summary ---
"Discharge Summary Admit Date: 04/27/24 Discharge Date: 04/28/24 Discharging Provider: Vy Burns MD Primary Care Provider: Kimberlee Boles MD [facility], [facility] [phone] Code Status: Do Not Attempt Resuscitation (Patient has a POLST form at home) DIAGNOSES Discharge Diagnoses with Status of Each Condition: COPD with acute exacerbation COPD with asthma HPI History of Present Illness: 73-year-old male who has COPD with asthma and is on albuterol via inhalation, Ventolin handheld inhaler, and Breo Ellipta. He was seen in our emergency room in December and February of this for a flare but is usually not seen on a regular basis for COPD. He has lived on the [place] for about 8.5 years. He is not on home O2. He has had asthma off-and-on for years. But is associated with a chronic rhinosinusitis. He has had his sinuses reamed out twice. And he is on a sinus wash with budesonide. In spite of that he continues to have problems with the sinuses. There is nothing new going on with him but is just a chronic problem. His last CT of the sinuses was 2 years ago. To his knowledge, he does not have polyposis. He does not take nonsteroidals. He did not have any aspirin or ibuprofen in the last 2 days. Last pulmonary function studies were years ago. He is due to have a repeat evaluation May 01. 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 He does not recall ever using cedar. He lives in his own home. He does not have an aviary. He is not involved with farm animals. He doesn't smoke. He sees journeyman patternmaker Joshua Carrizales at [facility] ([phone]). He also sees Kimberlee Boles MD at [facility] as his PCP ([phone]). His Avionics Shop Supervisor is Jeff Li[facility] MD at [facility] ([phone]). He was brought in by ambulance today for increasing shortness of breath starting at 6:30 in the morning. When he gets short of breath, first thing in the morning, he does a Breo inhalation. He gets up. Drinks his coffee. Watches the sunrise. And he will feel comfortable. With this episode, he felt worse. He used his Ventolin and that also made him much worse. He is noticing that the Ventolin seems to be making him worse, not better. EMS found his initial room air saturation was 77% at his house and he had tremendous increased work of breathing. He tried using his albuterol MDI and nebulizer solution at home and he felt worse. EMS gave him 125 mg of Solu-Medrol and 2 g of magnesium sulfate. And brought him to the emergency room. He has no antecedent history of a viral illness. No fever, chills, cough. No congestion. No recent exposure to anything that would have been toxic to his lungs. He is compliant with his medications. In our emergency room temperature was 36.1, heart rate 101, respirations 42, 97% saturated on room air. Blood pressure was 204/129. He was in severe respiratory distress, and the emergency room provider describes him as almost an extremis. She came from a tiny dose of ketamine, 1 mg of Ativan, and has put him on continuous nebulizer treatments. He has improved. He is now breathing 14 breaths a minute. Still afebrile. Heart rate has come down to 94. And blood pressure is now 122/69. But he still has tight lungs, is wheezing. After discussion with the ER provider, I think it would be prudent to place him in observation status and continue our treatment to stabilize him and try and tease out why he decompensated without any provocative factors. CONSULTS | PROCEDURES Procedures: Chest x-ray is without acute cardiopulmonary changes HOSPITAL COURSE Hospital Course: Within hours of being started on steroids and nebulizers the patient's wheezing completely abated. He was comfortable. Able to sit up in bed and have a normal conversation. Son was at the bedside. The patient lets me know that his and son are his DPOA. By 4 in the afternoon I felt he was stable enough to go home. However, the power went out. Phone systems were down. I did not feel it would be safe to send him home since it might be difficult to call 911 again. As such I kept him overnight and he was discharged this morning in stable condition. He is alert and oriented to person, place, time and situation. We have discussed his resuscitative status. He is DPOA is son and . He has a POLST form at home. We discussed what resuscitation means at great length. I explained that a POLST form only becomes enacted when he no longer has a pulse or pressure. If he has a pulse or pressure we will do everything to treat him as defined by his wishes. If he is unconscious his or son would speak for him. He states that if he were to come in in respiratory extremis, with a pulse and a pressure, he would like to be intubated. but if he doesn't have a pulse or pressure, DO NOT Resusciate. I did speak to his pulmonology office. He is journeyman patternmaker was not on-call but I spoke to the physician that was on-call. He reviewed the case with me and is recommended a long steroid taper. The patient was also concerned about his dorzolamide with timolol possibly interacting with this medication and making his asthma worse. I asked him to discuss that with his journeyman patternmaker. He is discharged in stable condition. Blood pressure is 156/76. Respirations 18. Pulse 88. Temperature 36.6. He is 6 feet 7 inches tall, 83.9 kg. Tall lanky gentleman. Alert and oriented to person, time, place, and situation. Neck is supple. Lungs are completely clear. No respiratory distress at all. Son states that dad was tripoding at home, and he was an extremis in the ER, and is very comfortable right now. Normal conversation without increased respiratory effort. Able to get out of the bed and walk to the bathroom on his own. Regular rate and rhythm. Abdomen is soft and nontender. Extremities without edema. ALLERGIES Allergies Allergy/AdvReac Type Severity Reaction Status Date / Time Sulfa (Sulfonamide Allergy Unknown Verified 04/27/24 07:28 Antibiotics) MEDICATIONS Ambulatory Orders Medication Instructions Recorded Confirmed apixaban 5 mg tablet (Eliquis) 5 mg PO BID 07/11/20 04/27/24 budesonide 180 mcg/actuation 1 puff inhalation BID 07/11/20 04/27/24 breath activated powder inhaler (Pulmicort Flexhaler) albuterol sulfate 2.5 mg/3 mL 2.5 mg (3 mL) inhalation Q4H PRN 01/02/24 04/27/24 (0.083 %) solution for nebulization Wheezing #30 mL albuterol sulfate 90 mcg/actuation 1 - 2 puff inhalation Q4HR PRN 01/02/24 04/27/24 aerosol inhaler (Ventolin HFA) Shortness Of Air/Wheezing #1 ea budesonide-formoterol HFA 160 2 puff inhalation BID 04/27/24 04/27/24 mcg-4.5 mcg/actuation aerosol inhaler dorzolamide 22.3 mg-timolol 6.8 1 drp ophthalmic (eye) BID 04/27/24 04/27/24 mg/mL eye drops latanoprostene bunod 0.024 % eye 1 drp ophthalmic (eye) QPM 04/27/24 04/27/24 drops (Vyzulta) montelukast 10 mg tablet 10 mg PO QPM 04/27/24 04/27/24 prednisone 10 mg tablet 10 mg PO DIRECTED #70 tabs 04/28/24 LABS 04/28/24 04:04 04/28/24 04:04 TIME SPENT Time Spent in Discharge (Minutes): 20 Discharge Plan Discharge Patient Disposition: 01 Home, Self Care Condition: Stable Medically Cleared Date:: 04/28/24 Prescriptions: New prednisone 10 mg tablet 10 mg PO DIRECTED Qty: 70 0RF Rx Instructions: see taper instructions: 4 po daily for 7 days, then 3 po daily for 7 days, then 2 po daily for 7 days, then 1 po daily for 7 days Continued Eliquis 5 MG tablet 5 mg PO BID Pulmicort Flexhaler 120 PUFFS aerosol powdr breath activated 1 puff inhalation BID albuterol sulfate 2.5 MG/3 ML solution for nebulization 2.5 mg inhalation Q4H PRN (Reason: Wheezing) Qty: 30 0RF Rx Instructions: 1 AMPULE albuterol sulfate [Ventolin HFA] 200 PUFFS/18 GM HFA aerosol inhaler 1 - 2 puff inhalation Q4HR PRN (Reason: Shortness Of Air/Wheezing) Qty: 1 0RF Vyzulta 0.024 % drops 1 drp ophthalmic (eye) QPM dorzolamide-timolol 22.3-6.8 mg/mL drops 1 drp ophthalmic (eye) BID budesonide-formoterol 160-4.5 mcg/actuation HFA aerosol inhaler 2 puff INHALATION BID Patient Comments: inhale 2 puffs by mouth twice a day montelukast 10 mg tablet 10 mg PO QPM Patient Comments: take 1 tablet by mouth every evening Diet: Regular Interventions: Discharge Last Done: 04/28/24 11:26 Discharge Checklist - Nursing Last Done: 04/28/24 11:26 Health Concerns: You have a long history of asthma. You already see a journeyman patternmaker Kathleen Camacho. You presented to our emergency room with sudden onset of severe wheezing, inability to breathe. We treated you with intravenous steroids, and [id number] nebulizers and you have slowly resolved your asthma attack. You currently do not have any wheezing or respiratory distress on physical exam. Your chest x-ray was normal. And your lab work was normal. I spoke to the journeyman patternmaker who is on-call for Dr. Carrizales and they recommend prednisone with a slow taper. You are now ready to go home and on exam have clear lungs Plan of Treatment: 1. Please see your primary care provider Kimberlee Boles, and your Savings Teller, Joshua Carrizales in the next 1 to 2 weeks. The journeyman patternmaker on-call intimated that Dr. Carrizales may be doing a telehealth visit with you this coming week. Other than prednisone taper, I am not changing any of your medications. You were worried that one of your eyedrops, the dorzolamide with timolol, could be causing your asthma. Please discuss that with your journeyman patternmaker. 2. You have a postnasal drip with constant clearing of your throat and a hoarse voice. We discussed the use of Singulair and Claritin/Zyrtec/Claritin. Already takes Singulair. The generic name of that is montelukast. 3. You want to avoid Benadryl because it can cause worsening prostatic symptoms. You have early signs of an enlarged prostate by your history. 4. We discussed your advance care wishes. You are currently a DO NOT RESUSCITATE and you will have your family bring in a copy of your POLST form so that we can put that in the chart. 5. Instructions per the pulmonology office were to take prednisone 40 mg every day for 7 days, then 30 mg a day for 7 days, then 20 mg a day for 7 days, then 10 mg a day for 7 days. I am prescribing 10 mg tablets. So that would mean 4 tablets then 3 tablets then 2 tablets then 1 tablet and then nothing. Print Language: Indonesian Patient Instructions: Prednisone tablets, Asthma Action Plan, Allergy Meds, Asthma Avoid Triggers Ch Follow-up Care: Joshua Carrizales MD [Physician No Access] -"
--- NOTE | 2024-04-28 10:35 | PHARMACY PROGRESS NOTE ---
Best Possible Medication History Admit Date and Time: 04/27/24 [id number] Home Medications Medication Instructions Recorded Confirmed Type apixaban 5 mg tablet (Eliquis) 5 mg PO BID 07/11/20 04/27/24 History budesonide 180 mcg/actuation 1 puff inhalation BID 07/11/20 04/27/24 History breath activated powder inhaler (Pulmicort Flexhaler) albuterol sulfate 2.5 mg/3 mL 2.5 mg (3 mL) inhalation Q4H PRN 01/02/24 04/27/24 Rx (0.083 %) solution for nebulization Wheezing #30 mL albuterol sulfate 90 mcg/actuation 1 - 2 puff inhalation Q4HR PRN 01/02/24 04/27/24 Rx aerosol inhaler (Ventolin HFA) Shortness Of Air/Wheezing #1 ea budesonide-formoterol HFA 160 2 puff inhalation BID 04/27/24 04/27/24 History mcg-4.5 mcg/actuation aerosol inhaler dorzolamide 22.3 mg-timolol 6.8 1 drp ophthalmic (eye) BID 04/27/24 04/27/24 History mg/mL eye drops latanoprostene bunod 0.024 % eye 1 drp ophthalmic (eye) QPM 04/27/24 04/27/24 History drops (Vyzulta) montelukast 10 mg tablet 10 mg PO QPM 04/27/24 04/27/24 History prednisone 10 mg tablet 10 mg PO DIRECTED #70 tabs 04/28/24 Rx Processed by: Pharmacy Medications reviewed in ED?: No Medication History completed: No Patient Interview: Completed Secondary Source(s): Caregiver and Insurance records [facility] Statement: Pt interview with [employer] records and RN in room with patient in-person. As the person ultimately responsible for medication therapy, providers are able to order a medication from an existing home medication list in [facility] via the "Reconcile Routine" prior to Confirmation of that medication by work station support specialist. Such practice is discouraged except when the physician, in their clinical judgment, deems that a medical need exists for a medication without regard to previous use.
== END 2024-04-28 11:27 | disposition home or self-care (01) ==
LOC: ED 07:23 → MS2 07:23
PROVIDERS: ADMIT Specialist; ATTEND Specialist
DX: J96.01 Acute respiratory failure with hypoxia; H40.9 Unspecified glaucoma; Z66 Do not resuscitate; J44.1 Chronic obstructive pulmonary disease with (acute) exacerbation; I48.91 Unspecified atrial fibrillation; J45.901 Unspecified asthma with (acute) exacerbation